=== PATIENT | female | born 1980 | race Caucasian/White ===

== ENCOUNTER → 2020-09-28 10:17 | Outpatient (CLI) | payer OTHER, SELFPAY ==
--- NOTE | ~2020-09-28 | MM_ITS ---
EXAMINATION: MM screening heather BI w jose HISTORY: Screening mammogram TECHNIQUE: Craniocaudal and mediolateral oblique 3-D tomosynthesis images were obtained and synthetic 2-D images were generated. CAD analysis was submitted and interpreted. COMPARISON: None, baseline BREAST PARENCHYMAL COMPOSITION: There are scattered areas of fibroglandular density. FINDINGS: RIGHT BREAST: There is no evidence of suspicious mass, calcification, or architectural distortion to suggest malignancy. LEFT BREAST: There are asymmetries in the middle and posterior third of the outer breast on the crani ocaudal view in the posterior third of the lower breast on the mediolateral oblique view. IMPRESSION: 1. Left breast asymmetries. 2. Additional mammographic views and possible breast ultrasound are recommended to evaluate for malig marcy and establish a baseline given that this is the first mammographic examination. BI-RADS Category 0: Incomplete: Needs additional imaging evaluation. Reviewed, dictated and finalized at location A. TATION OPERATOR HELPER IMPRESSION: 1. Left breast asymmetries. 2. Additional mammographic views and possible breast ultrasound are recommended to evaluate for malignancy and establish a baseline given that this is the fir st mammographic examination. BI-RADS Category 0: Incomplete: Needs additional imaging evaluation.
== END ==
PROVIDERS: Visit Provider Nurse Practitioner
DX: Z12.31 Encounter for screening mammogram for malignant neoplasm of breast (principal); R92.8 Other abnormal and inconclusive findings on diagnostic imaging of breast
CPT/HCPCS: 77063; 77067

== ENCOUNTER → 2020-10-12 08:54 | Outpatient (CLI) | payer OTHER, SELFPAY ==
--- NOTE | ~2020-10-12 | MMUS_ITS ---
EXAMINATION: MM diagnostic mammo unilat LT, US breast LT limited HISTORY: Follow-up left breast asymmetries TECHNIQUE: Additional 3-D tomosynthesis images of the left breast were performed and synthetic 2-D im ages were generated. CAD analysis was submitted and interpreted. High resolution Limited left breast ultrasound was performed. COMPARISON: 09/28/2020 BREAST PARENCHYMAL COMPOSITION: Breast composed of scattered areas of fibroglandular density. FINDINGS: MAMMOGRAPHIC FINDINGS: There are no suspicious masses, calcifications or architectural distortion. No evidence for malignanc y in the left breast. ULTRASOUND: Limited left breast ultrasound: At 2:00, 2 cm from the nipple, there is a 3 mm cyst. At 2:00, 4 cm fr om the nipple, there is an oval hypoechoic mass measuring 6 mm without internal vascularity or dental laboratory worker ior features. IMPRESSION: 1. Probable benign left breast mass at 2:00, 4 cm from the nipple measuring 6 mm. 2. Recommend 6 month follow-up left breast ultrasound. BI-RADS category 3, probably benign findings. Reviewed, dictated and finalized at location A. RVISOR ASPHALT PAVING IMPRESSION: 1. Probable benign left breast mass at 2:00, 4 cm from the nipple measuring 6 m m. 2. Recommend 6 month follow-up left breast ultrasound. BI-RADS category 3, probably benign findings.
== END ==
PROVIDERS: Visit Provider Obstetrics & Gynecology Gynecology
DX: R92.8 Other abnormal and inconclusive findings on diagnostic imaging of breast (principal)
CPT/HCPCS: 76642; 77065

== ENCOUNTER → 2021-04-03 08:20 | Outpatient (CLI) | payer OTHER, SELFPAY ==
--- NOTE | ~2021-04-03 | US_ITS ---
EXAMINATION: US breast LT limited HISTORY: Six-month follow-up for probably benign left breast mass TECHNIQUE: Limited high-resolution ultrasound of left breast is performed. FINDINGS: There is a 4 mm x 3 mm cyst at the 2:00 location 4 cm from the nipple in the left breast wh ich is decreased in size since the comparison examination. No suspicious cystic or solid mass is iden tified. IMPRESSION: Left breast cyst with decrease in size. Routine screening mammography is recommended, due in September 2021. BI-RADS Category 2: Benign finding(s). Reviewed, dictated and finalized at location A. IMPRESSION: Left breast cyst with decrease in size. Routine screening mammography is recomm ended, due in September 2021. BI-RADS Category 2: Benign finding(s).
== END ==
PROVIDERS: PCP Family Medicine; Visit Provider Obstetrics & Gynecology Gynecology
DX: R92.8 Other abnormal and inconclusive findings on diagnostic imaging of breast (principal)
CPT/HCPCS: 76642

== ENCOUNTER → 2022-08-14 14:03 | Outpatient (CLI) | payer OTHER, SELFPAY ==
--- NOTE | ~2022-08-14 | MM_ITS ---
EXAMINATION: MM screening heather BI w jose HISTORY: Screening TECHNIQUE: Craniocaudal and mediolateral oblique 3-D tomosynthesis images were obtained and synthetic 2-D images were generated. CAD analysis was submitted and interpreted. COMPARISON: 09/28/2020 BREAST PARENCHYMAL COMPOSITION: There are scattered areas of fibroglandular density. FINDINGS: There is no evidence of suspicious mass, calcification, or architectural distortion to sugg est malignancy in either breast. There has been no suspicious interval change. IMPRESSION: 1. No mammographic evidence of malignancy. 2. Recommend routine screening mammography in one year. BI-RADS Category 1: Negative Reviewed, dictated and finalized at location A. RITY CONSULTANT
== END ==
PROVIDERS: PCP Family Medicine; Visit Provider Obstetrics & Gynecology Gynecology
DX: Z12.31 Encounter for screening mammogram for malignant neoplasm of breast (principal)
CPT/HCPCS: 77063; 77067

== ENCOUNTER → 2023-09-30 07:21 | Outpatient (CLI) | payer OTHER, SELFPAY ==
--- NOTE | ~2023-09-30 | MM_ITS ---
EXAMINATION: MM screening heather BI w jose HISTORY: Screening mammogram TECHNIQUE: Craniocaudal and mediolateral oblique 3-D tomosynthesis images were obtained and synthetic 2-D images were generated. CAD analysis was submitted and interpreted. COMPARISON: 08/14/2022 bilateral screening mammogram 04/03/2021 Limited left breast ultrasound 10/12/2020 diagnostic left mammogram and limited left breast ultrasound 09/28/2020 bilateral screening mammogram BREAST PARENCHYMAL COMPOSITION: There are scattered areas of fibroglandular density. FINDINGS: There is no evidence of suspicious mass, calcification, or architectural distortion to sugg est malignancy in either breast. There has been no suspicious interval change. IMPRESSION: 1. No mammographic evidence of malignancy. 2. Recommend routine screening mammography in one year. BI-RADS Category 1: Negative Reviewed, dictated and finalized at location B. PPER OPERATOR
== END ==
PROVIDERS: PCP Nurse Practitioner; Visit Provider Nurse Practitioner
DX: Z12.31 Encounter for screening mammogram for malignant neoplasm of breast (principal)
CPT/HCPCS: 77063; 77067

== ENCOUNTER 2024-10-11 07:48 | Outpatient (CLI) | payer OTHER, SELFPAY ==
--- NOTE | ~2024-10-11 | MM_ITS ---
EXAMINATION: MM screening [facility] BI w jose HISTORY: Screening mammogram TECHNIQUE: Craniocaudal and mediolateral oblique 3-D tomosynthesis images were obtained and synthetic 2-D images were generated. CAD analysis was submitted and interpreted. COMPARISON: 09/30/2023, 08/14/2022, 10/12/2020 BREAST PARENCHYMAL COMPOSITION:Not Dense. There are scattered areas of fibroglandular density. FINDINGS: No suspicious mass, calcification, or architectural distortion are identified in either suzie ast to suggest malignancy. There has been no suspicious interval change. IMPRESSION: No mammographic evidence of malignancy. Recommend routine screening mammography in one year. BI-RADS Category 1: Negative Reviewed, dictated and finalized at location . L EDGE PAINTER
== END 2024-10-11 07:49 | disposition home or self-care (01) ==
PROVIDERS: PCP Nurse Practitioner; Visit Provider Nurse Practitioner
DX: Z12.31 Encounter for screening mammogram for malignant neoplasm of breast (principal)
CPT/HCPCS: 77063; 77067

== ENCOUNTER 2025-01-17 10:34 | Outpatient (CLI) | payer OTHER, SELFPAY ==
--- NOTE | ~2025-01-17 | US_ITS ---
EXAM: PELVIC ULTRASOUND (transabdominal) HISTORY: Dysfunctional uterine bleeding COMPARISON: None. FINDINGS: UTERUS: 8.1 x 3.6 x 4.1cm. The uterus is anteverted and anteflexed. The endometrial complex measures 5.4 mm. RIGHT OVARY: The right ovary is unremarkable in echogenicity and size measuring 1.6 x 2.7 x 1.7 cm. Dopplerable flow is identified. LEFT OVARY: The left ovary is unremarkable in echogenicity and size measuring 2.8 x 1.3 x 2.0 cm Dopplerable flow is identified. No free fluid is identified within the pelvis. IMPRESSION: Unremarkable transabdominal sonographic evaluation of the pelvis, as detailed above. Reviewed, dictated and finalized at location A. IMPRESSION: Unremarkable transabdominal sonographic evaluation of the pelvis, as detailed a sam.
== END 2025-01-17 10:35 | disposition home or self-care (01) ==
LOC: MICIMG 10:35
PROVIDERS: PCP Obstetrics & Gynecology Gynecology; Visit Provider Obstetrics & Gynecology Gynecology
DX: N93.8 Other specified abnormal uterine and vaginal bleeding (principal)
CPT/HCPCS: 76856

== ENCOUNTER 2025-01-24 00:33 | Day surgery (SDC) | payer OTHER, SELFPAY ==
[2025-01-17 12:19] VITALS: BMI 24.3
--- OUTSIDE RECORDS SUMMARY | 2025-01-24 00:36 | XMS_ITS | Clinical Summary ---
Author Organization [facility] Address [address] [place] [id number] Care Team Providers Care Cardiac Specialist Name Role Phone Unknown, Notinfile Primary Care Provider Unavail able Allergies Active Allergy Reactions Criticality Noted Date Comments Cephalosporins Hives Medium 04/04/2020 Morphine Rash Medium 09/18/2021 Penicillins Hives Medium 04/04/2020 Medications fluticasone propionate (FLONASE) 50 mcg/actuation nasal spray Administer 2 sprays into each nostril 2 (two) times a day Active levocetirizine (Xyzal) 5 mg tablet Take 1 tablet (5 mg total) by mouth every evening Active azelastine (OPTIVAR) 0.05 % ophthalmic solutionIndication s:Allergic Conjunctivitis 1 drop 2 (two) times a day Active melatonin 10 mg tablet 1 tablet (10 mg total) Active rimegepant (Nurtec ODT) tablet,disintegrat ingIndications:Johnny leonard Prevention Take 1 tablet (75 mg total) by mouth every other day 16 tablet 11 4 Active cholecalciferol 25 mcg (1,000 unit) tablet Take 1 tablet (1,000 Units total) by mouth daily Active DULoxetine DR (CYMBALTA) 60 mg capsule Take 1 capsule (60 mg total) by mouth daily 90 capsule 3 4 Active Hospital, Clinic, or Other Facility Administered Medication Ordered Dose Route Frequency Start Date End Date Status onabotulinumtoxin A (BOTOX) 200 unit injection 200 UnitsIndications:Intr actable chronic migraine without aura and without status migrainosus 200 Units OTHER Once for Clinic-Administere d Medication 03/14/2025 Active Active Problems Problem Noted Date Diagnosed Date Intractable chronic migraine without aura and without status migrainosus 04/30/2023 Idiopathic small fiber peripheral neuropathy Stiffness of hand joint 04/04/2020 Joint pain in fingers of both hands 04/04/2020 JOSE positive 04/04/2020 Dry eyes 04/04/2020 Rash and nonspecific skin eruption 04/04/2020 depression 04/04/2014 Gestational hypertension 03/04/2014 Overview (09/20/2020): 24 hr urine 226mg 03/02/14 AMA (advanced maternal age) multigravida 35+ 08/2014 Overview (09/20/2020): Patient will turn 34 prior to delivery NIPT negative Asthma 01/08/2014 History of section complicating pregnan cy 01/08/2014 Overview (09/20/2020): G1: 34w5d for HELLP, PTL, breech at [place] in 2008, primary LTCS, no complications. Op note under media in [facility] chart History of HELLP syndrome, currently Overview (09/20/2020): Per [facility] record: Atypical presentation, diagnosis not entirely certain. Had mild hypertension, some growth delay, thrombocytopenia and abnormal liver functions but they resolved prior to delivery. Had some features of viral hepatitis, but studies were negative. 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, currently 01/08/2014 Overview (09/20/2020): Baby now doing well History of labor, current 12/28 Overview (09/20/2020): Receiving weekly 17-OHP injections Placenta previa 01/08/2014 Overview (09/20/2020): Complete previa per last BOG ultrasound Rh negative status during 01/08/2014 Overview (09/20/2020): Declines Rhogam, as is A- Did not receive Rhogam in last either Supervision of high-risk 01/08/2014 Overview (09/20/2020): Datin week documented CRL, not c/w LMP O-/I/-/-, HIV NR GCT 151 GTT 78/151/143/77 NIPT negative Encounters Date Type Department Care Team Description 12/29/2024 Orders Only [facility] General Neurology [address] [place] [address] Sherine Marisa Dunbar Intractable chronic migraine without aura and without status migrainosus (Primary Dx) 12/20/2024 1:20 PM CDT Procedure visit [facility] General Neurology [address] [place] [address] Karon Hardy PA Intractable chronic migraine without aura and without status migrainosus (Primary Dx) 11/03/2024 Orders Only [facility] [address] [facility] [address] [place] [address] Sherine Marisa Dunbar Intractable chronic migraine without aura and without status migrainosus (Primary Dx) 11/03/2024 Telephone [facility] General Neurology [address] [facility] [address] [place] [address] Karon Hardy PA [facility] Renewal from Last 3 Months Surgical History Surgery Date Site/Laterality Comments SECTION 09/29/2008 - 09/28/2009 CHOLECYSTECTOMY 09/29/2008 - 09/28/2009 TONSILECTOMY, ADENOIDECTOMY, BILATERAL MYRINGOTOMY AND TUBES 09/29/2011 - 09/28/2012 SECTION 09/29/2013 - 09/28/2014 Medical History Medical History Date Comments Joint stiffness Fever and chills Fatigue Sleeping difficulties Night sweats Numbness and tingling Skin rash History of joint problems HANDS ANKLES KNEES Dry eyes Dry mouth Eyes sensitive to light Red eyes Chest pain Dizziness Fainting Shortness of breath Constipation Hx of migraine headaches Back pain Morning stiffness of joints Depression with anxiety Anemia High blood pressure DURING PREGA NCY Asthma Pneumonia Sinus problem H/O pre-term labor DUE TO ATYPIC AL HELLP Anxiety Migraines Sleep disorder Fibromyalgia Hx of pre-term labor Anemia Low vitamin B12 level Low vitamin D level Family History Medical History Relation Name Comments Anxiety disorder Brother Hyperlipidemia Brother Heart attack Father FATHER Heart disease Father FATHER Heart disease Maternal Grandfather Anxiety disorder Mother Arthritis Mother Cancer Mother Hypertension Mother Heart disease Paternal Grandfather Heart disease Paternal Grandmother Allergic rhinitis Sister Anxiety disorder Sister Allergic rhinitis Son Asperger's syndrome Son Scoliosis Son Relation Name Status Comments Brother Father FATHER (Age 44) Maternal Grandfather Mother Paternal Grandfather Paternal Grandmother Sister Son Social History Tobacco Use Types Packs/Day Years Used Date Smoking Tobacco: Former Smokeless Tobacco: Never Tobacco Cessation:Counseling Given: Not Answered Alcohol Use Standard Drinks/Week Comments Yes 0 (1 standard drink = 0.6 oz pur e alcohol) Comments No Sex and Gender Information Value Date Recorded Sex Assigned at Not on file Legal Sex Female 8:12 PM PROTECTION MGR Gender Identity Not on file Sexual Orientation Not on file Occupation Industry Job Start Date Job End Date works from home Not on file Not on file Not on file Obstetrics History Last Filed Vital Signs Vital Sign Reading Time Taken Comments Blood Pressure 90/70 12/20/2024 1:25 PM CDT Pulse 120 12/20/2024 1:25 PM CDT Temperature 36.2 C (97.2 F) 12/20/2024 1:25 PM CDT Respiratory Rate - - Oxygen Saturation 97% 12/20/2024 1:25 PM CDT Inhaled Oxygen Concentration - - Weight 77.1 kg (170 lb) 12/20/2024 1:25 PM CDT Height 172.7 cm (5' 8 ) 12/20/2024 1:25 PM CDT Body Mass Index 25.85 12/20/2024 1:25 PM CDT Plan of Treatment Health Maintenance Due Date Last Done Comments Breast Cancer Screening-Mammogram 1979 Cervical Cancer Screening 1979 Colon Cancer Screening-Colonoscopy 1979 Depression Screening 1979 Hepatitis C Screening 1979 Hepatitis B Screening 1997 Regular Well Visit/Exam 18-64 1997 Pneumococcal vaccine <65 (2 of 2 - PCV) 03/12/2015 03/12/2014 DTaP/Tdap/Td Vaccine (2 - Td or Tdap) 03/02/2024 03/02/2014 Influenza Vaccine (Season Ended) 2025 09/30/2023, 07/30/2020 HPV Vaccines Aged Out No longer eligi ble based on patient's age to complete this topic Insurance [employer] Care Teams Cardiac Specialist Relationship Specialty Start Date End Date Unknown, Notinfile PCP - General 01/06/25
--- OUTSIDE RECORDS SUMMARY | 2025-01-24 00:36 | XMS_ITS | CONTINUITY OF CARE DOCUMENT ---
Author Name kelby lama Address Unknown Organization [facility] Address [address] [place] [address] Phone [phone] Care Team Providers Care Manager File Name Role Phone Meliza Ruiz MD Unavailable JAZZY BROCK MD Unavailable JAZZY BROCK MD Unavailable PROBLEMS Condition Status Date Provider Notes LEG OR ARM PAIN active Stacey Anglin ANXIETY DISORDER GENERALIZED active Stacey Anglin ENCOUNTERS Date Type Provider Location Encounter Diagnosis - In-person encounter Office Visit Maged Bullard MD [facility] VITAL SIGNS Date Observation Value Provider pulse rate 84 /min Anuj Stuart RN oxygen saturation, oximetry 100 % Anuj Stuart RN respiratory rate E&M 18 /min Anuj garcia RN weight E&M 152 [lb_av] Anuj Stuart RN HISTORY OF MEDICATION USE Medication Status Instructions Dates Provider Indications Com ments VITAMINS TABLET active daily Anuj Stuart RN SOCIAL HISTORY Date Observation Value Provider social history E&M Marital Statu s: L olga with family/friends E thnicity: Anuj Stuart RN social history reviewed E&M reviewed Anuj Stuart RN physical exercise, f requency, days per week yes [employer] caffeine use, averag e drinks per day no [employer] alcohol use, average drinks per day none [employer] smoking status Non-smoker [employer] MENTAL STATUS Date Observation Value Provider assessment of judgme nt and insight E&M Alert and oriented to time, place and person. Mood and affect are normal. Anuj Stuart RN INSURANCE PROVIDERS Payer name Policy type / Coverage type Haresh red republican ID SH[employer] insurance company [id number] TREATMENT PLAN Date Name Performer chest pain 32 weeks :Echocardiogram: Normal LV function with an EF of 65%. Myxomatous MV. Trace MR. Trace TR with a PA pressure 29mmmHg. [facility] (04/03/2007) Orders: E KG ([id number]) C omplete Echo ([id number]) s he has had this pain for 5-6 days. also the pain was there and then went away. she now has pain again. t he ekg is fine and she looks ok w ill check an echo and venous dopplers. w ill see her after the tests are done. Maged Bullard MD Date Name Venous Doppler Emil FOSTER Complete Echo HISTORY OF PROCEDURES Procedure Date Procedure Name Provider Procedure Notes S tatus EKG Maged Bullard MD completed
--- OUTSIDE RECORDS SUMMARY | 2025-01-24 00:36 | XMS_ITS | Data Portability ---
Author Organization [facility], Main Office Address [address] [place] [address] Assessment No assessment recorded. Plan of Treatment Reminders Order Date Submit Date Provider Last Modified By Organization Details Last Modified Time Details Appointments None recorded. Lab None recorded. Referral None recorded. Procedures None recorded. Surgeries None recorded. Imaging None recorded. Medication Orders prednisone 20 mg tablet 2022 023 [facility]/Pharmacy #[id number], [address] [facility], [place], [address], 08:32:38 Patient TargetsNo targets recorded. Patient InstructionsNo instructions recorded. Reason for Referral None Reported. Results Created Date Observation Date Name Description Value Unit Range Abnormal Flag Note LastModifiedBy Organization Detail LastModifiedTime 04/04/2004/03/2021 US, sanchez t No observ ation record ed. [id number] [facility] [address], [place], [address], 11/27/2022 22:51:09 08/14/20 22 08/14/2022 MAMMO , scree jami, digit al, bilat eral No observ ation record ed. [id number] [facility] [address], [place], [address], 11/27/2022 22:51:09 Result Notes None recorded. 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 Procedures Surgical History Date Name Laterality Status Provider Name and Address Organization Details Recorded Time section completed Not Available [facility] 11/27/2022 22:47:46 Tonsillectomy completed Not Available [facility] 11/27/2022 22:47:46 cholecystectomy completed Not Available [facility] 11/27/2022 22:47:46 Imaging Results Imaging Date Name Status LastModified by Organiz ation Details LastModified Time 04/03/2021 US, breast completed [id number] [facility] [address], [place], [address], 11/27/2022 22:51:09 08/14/2022 MAMMO, screening, digital, bilateral completed [id number] [facility] [address], [place], [address], 11/27/2022 22:51:09 Procedure Notes None recorded. Medical Equipment None Reported. Allergies Allergen ID Allergen Name Allergen Category Reaction Reaction Severity Criticality Documentation Date Start Date Code Code System Note Provider Name and Address Organization Details Recorded Time 57017 Product containin g penicilli n (product) medicatio n Not available Not available Not available 11/27/2022 00732 8001 SNOMED hives Not Available [facility] 3 22:50:49 15277 morphine medicatio n Not available Not available Not available 11/27/2022 7052 RxNorm visua l distu rbanc e Not Available [facility] 3 22:50:50 23346 Medicinal product containin g cephalosp xenia and acting as antibacte rial agent (product) medicatio n Not available Not available Not available 11/27/2022 69653 9009 SNOMED hives Not Available [facility] 3 22:50:50 Medications Name Sig Start Date Stop Date Status Note LastModified by Organization Details LastModified Time azelastine 0.05 % eye drops 03/04 completed Not Available Not Available Not Available prednisone 10 mg tablet 02/12 completed Not Available Not Available Not Available doxycycline hyclate 100 mg capsule 1 po bid 03/04 completed Not Available Not Available Not Available azithromyci n 250 mg tablet 03/04 completed Not Available Not Available Not Available fluconazole 150 mg tablet 03/04 completed Not Available Not Available Not Available prednisone 20 mg tablet TAKE 2 TABLETS BY MOUTH EVERY DAY FOR 5 DAYS active Not Available Not Available No t Available doxycycline hyclate 50 mg capsule 02/12 completed Not Available Not Available Not Available sertraline 100 mg tablet 1 po qday 03/12 completed Not Available Not Available Not Available sumatriptan 50 mg tablet prn active Not Available Not Available Not Available topiramate 25 mg tablet PLEASE SEE ATTACHED FOR DETAILED DIRECTION S active Not Available Not Available No t Available sulfamethox azole 800 mg-trimetho prim 160 mg tablet 02/12 completed Not Available Not Available Not Available meclizine 25 mg tablet active Not Available Not Available Not Available doxycycline monohydrate 100 mg capsule 03/04 completed Not Available Not Available Not Available triamcinolo ne acetonide 0.1 % topical ointment active Not Available Not Available Not Available metronidazo le 0.75 % topical cream active Not Available Not Available Not Available ergocalcife rol (vitamin D2) 1,250 mcg (50,000 unit) capsule 1 po qweek active Not Available Not Available No t Available polyethylen e glycol 3350 17 gram/dose oral powder 1 capful in liquid daily prn active Not Available Not Available No t Available levofloxaci n 750 mg tablet 02/12 completed Not Available Not Available Not Available albuterol sulfate HFA 90 mcg/actuati on aerosol inhaler 02/12 completed Not Available Not Available Not Available fluticasone propionate 50 mcg/actuati on nasal spray,suspe nsion [place] 1 spray every day by intranasa l route. 2020 active Not Available Not Available Not Avai lable clindamycin phosphate 1 % topical solution active Not Available Not Available Not Available duloxetine 60 mg capsule,del ayed release TAKE 1 CAPSULE TWICE A DAY 2022 active Not Available Not Available Not Avai lable melatonin 6 mg qhs 2020 active Not Available Not Available Not Avai lable B12 once per day 2020 active Not Available Not Available Not Avai lable Vitals Date Recorded Body mass index (BMI) Body height Oxygen saturation Oxygen saturation in Arterial blood by Pulse oximetry Heart rate Body temperature Body weight Systolic blood pressure Diastolic blood pressure Provider Name and Address Organization Details Last Updated DateTime 1 25.4 kg/m2 172.72 cm 97 % 97 % 88 /min 98.1 [degF] 49979.9 3 g 110 mm[Hg] 68 mm[Hg] Not Available [facility] 3 22:47:51 Date Recorded Body mass index (BMI) Body height Oxygen saturation Oxygen saturation in Arterial blood by Pulse oximetry Heart rate Body temperature Body weight Systolic blood pressure Diastolic blood pressure Provider Name and Address Organization Details Last Updated DateTime 1 25.4 kg/m2 172.72 cm 96 % 96 % 84 /min 98.7 [degF] 12322.9 3 g 126 mm[Hg] 78 mm[Hg] Not Available [facility] 3 22:47:51 Date Recorded Body mass index (BMI) Body height Oxygen saturation Oxygen saturation in Arterial blood by Pulse oximetry Heart rate Body temperature Body weight Systolic blood pressure Diastolic blood pressure Provider Name and Address Organization Details Last Updated DateTime 1 25.4 kg/m2 172.72 cm 98 % 98 % 81 /min 98.1 [degF] 52614.9 3 g 120 mm[Hg] 80 mm[Hg] Not Available [facility] 3 22:47:51 Date Recorded Body weight Body temperature Heart rate Oxygen saturation Oxygen saturation in Arterial blood by Pulse oximetry Systolic blood pressure Diastolic blood pressure Provider Name and Address Organization Details Last Updated DateTime 3 28045.1 5 g 97.3 [degF] 96 /min 98 % 98 % 124 mm[Hg] 76 mm[Hg] Allie Hopkins RN [place] [facility] 3 08:13:31 Social History Question Answer Notes LastModified by Dear[employer] Details LastModified Time Tobacco Smoking Status Never Smoker Not Available [facility] 11/27/2022 22:47:13 Do You Have An Advance Directive? No [id number] Information not available 11/27/2022 What Is Your Level Of Alcohol Consumption? Moderate [id number] Information not available 11/27/2022 What Is Your Level Of Caffeine Consumption? Moderate [id number] Information not available 11/27/2022 How Much Tobacco Do You Chew? None [id number] Information not available 11/27/2022 Which Illicit Or Recreational Drugs Have You Used? No [id number] Information not available 11/27/2022 Do You Or Have You Ever Used E-cigarettes Or Vape? 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 02/12/2021 [id number] Information not available 11/27/2022 Do You Or Have You Ever Used Smokeless Tobacco? Never Used Smokeless Tobacco [id number] Information not available 11/27/2022 Do You Use Sunscreen Routinely? Yes [id number] Information not available 11/27/2022 Sex: Unknown Functional Status Question Answer Note LastModified by [employer] Details LastModified Time What is your exercise level? Occasional [id number] Information not available 11/27/2022 Mental Status None recorded. Family History Relationship Description Onset Age of this Age Resolved Age Notes LastModified by Organization Details LastModified Time Mother Essential hypertension [id number] Not available 11/27/2022 22:47:47 Mother Malignant neoplasm of skin Not melano ma [id number] Not available 11/27/2022 22:47:47 Father Essential hypertension [id number] Not available 11/27/2022 22:47:47 Father Heart disease [id number] Not available 11/27/2022 22:47:47 Brother Essential hypertension [id number] Not available 11/27/2022 22:47:47 Medical History Condition Response BLINDNESS N RHEUMATIC FEVER N BLADDER PROBLEMS N KIDNEY STONES N MRSA N OTHER # 1 N POLIO N LUNG DISEASE/DISORDER N RADIATION / CHEMOTHERAPY N COPD N Other # 2 N BLOOD DISEASES N SURGERY N EAR OR HEARING PROBLEMS N MUMPS N BOWEL PROBLEMS N DEPRESSION (INCLUDING POST ) N FEMALE PROBLEMS / INFECTIONS N STROKE/TIA N THYROID DISEASE N ULCERS N BENIGN PROSTATIC HYPERPLASIA N MEASLES N CERVICALGIA N TB SKIN TEST N MYOCARDIAL INFARCTION N PARAPELGIA N OBESITY N GERD/NAUSEA N ANEURYSM N URINARY/BLADDER/KIDNEY PROBLEMS N CORONARY ARTERY DISEASE (CAD) N MENIERE'S DISEASE N ADDICTION CONCERNS N ENDOMETRIOSIS N USE OF BLOOD THINNERS N SKIN PROBLEMS N EMPHYSEMA N GASTROINTESTINAL DISORDER N MUSCLE,JOINT OR BONE PROBLEMS N GASTROINTESTINAL BLEEDING N BLOOD CLOTS N ASTHMA Y CATARACTS N ERECTILE DYSFUNCTION N GI PROBLEMS N CHF N Low Testosterone N NEUROPATHY N INFERTILITY N AIDS/HIV N FRACTURES N CHEMOTHERAPY / RADIATION N VISION/EYE PROBLEMS N LIVER DISEASE N MALE HYPOGONADISM N HYPERTENSION N TOURETTE'S N ANXIETY DISORDER Y BLOOD TRANSFUSION N ANEMIA/BLOOD DISORDER N CHRONIC EAR INFECTIONS N BRONCHITIS N TUBERCULOSIS N GLAUCOMA N FOOT PROBLEM N DIVERTICULITIS N SLEEP APNEA N CHICKENPOX N ALLERGIES/HAYFEVER Y INFECTIOUS DISEASE N PROSTATE N HEART ARRHYTHMIA N INSOMNIA N HIGH CHOLESTEROL / HYPERLIPIDEMIA N EYE PROBLEMS N HYPERTHYROIDISM N EATING DISORDER N EDEMA N CHRONIC PAIN SYNDROME N CAROTID BLOCKAGE N CONSTIPATION N BACK / NECK PROBLEMS N HAVE YOU BEEN HOSPITALIZED OR SEEN IN [place] IN THE PAST YEAR ? N ATHEROSCLEROSIS N BREAST PROBLEMS N DIALYSIS N ECZEMA N FIBROMYALGIA N OSTEOPOROSIS N ARTHRITIS N NO SIGNIFICANT PAST MEDICAL HISTORY N APPENDICITIS N DIABETES, TYPE N BAD TEETH N HEARTBURN / REFLUX N ADD/ADHD N AUTISM SPECTRUM DISORDER (ASD) N HEPATITIS / LIVER DISEASE N PULMONARY DISEASE N GOUT N SLEEP DISORDER Y ALZHEIMER'S DISEASE N PAIN N DEMENTIA N HERPES N SEIZURES/EPILEPSY N HEADACHES/MIGRAINES Y VASCULAR DISEASE N PACEMAKER N DIZZINESS N HEART DISEASE/HEART PROBLEMS N KIDNEY DISEASE N SCARLET FEVER N MULTIPLE SCLEROSIS N DEVELOPMENTAL OR BEHAVIORAL DISORDERS N MENTAL DISORDER/ILLNESS N CANCER: SPECIFY N CARDIAC ARRHYTHMIA N PNEUMONIA N ATRIAL FIBRILLATION N Gall Stones N PULMONARY EMBOLISM N AUTOIMMUNE DISEASE N Gynecological HistoryNo gynecological history recorded. Obstetrics History GPAL:G 0 P 0 0 0 0 Immunizations Vaccine Type Date Status Note Provider Nam e and Address Organization Details Recorded Time SARS-COV-2 (COVID-19) vaccine, UNSPECIFIED 1 completed Not Available [facility] 11/27/2022 22:50:46 SARS-COV-2 (COVID-19) vaccine, UNSPECIFIED 1 completed Not Available [facility] 11/27/2022 22:50:46 Past Encounters Encounter ID Performer Location Encounter Start Date Encounter Closed Date Diagnosis/Indication Diagnosis SNOMED-CT Code Diagnosis ICD10 Code Diagnosis Note [id number] [facility] [address] [place] [address] 02/12/2021 00:00:00 02/12/2021 09:43:15 [id number] [facility] [address] [place] [address] 03/12/2021 00:00:00 03/12/2021 09:21:57 [id number] [facility] [address] [facility] [address] 04/09/2021 00:00:00 04/09/2021 08:19:28 [id number] Dodie Chung MD [facility] [address] [facility] [place] [address] 03/04/2023 08:08:34 03/04/2023 08:48:21 Dysfunction of eustachian tube 19013918 H69.93 continue flonase, xyzal and neti potok to take benadryl 50 mg po qhs-may cause dizziness, drowsiness prednisone 40 mg daily with food x 5 days, avoid other nsaidscall on Friday with update, ENT if no improvemen t Health Concerns Section Related Observation LastModified by Organization Detai ls LastModified Time None Recorded Concern Status LastModified by Organization Details LastModified Time None Recorded Advance Directives Directive N: Payers Encounter Date Sequence Insurance Name Policy Number Policy Amin Covered Member ID Amin Member ID Guarantor Name 03/04/2023 1 [facility] [id number] Sarah Gipsongrayson [id number] Sarah Parsons Notes Date Note Type Note Provider Name and Address Organization Details Recorded Time 03/04/2023 text/html bilateral ear pain, right greater than left. Had cold about a month ago, got abx with telehealth. Some improvement but no resolution. She had popping and muffled sensation, rhinorrhea, PND. About 2 weeks ago, ear pain worsened and radiates down into the jaw and throat. No fever, +facial congestion, PND. She takes xyzal in AM, neti pot, flonase 2 sprays BID, sudafed. Dodie Chung MD [address] [place] [address] [address], [place], [address], [place] [facility] 03/04/2023 08:34:40 OBGyn Episode No OBEpisode recorded.
--- OUTSIDE RECORDS SUMMARY | 2025-01-24 00:36 | XMS_ITS | Referral Summary ---
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 Name Role Phone Unknown, Notinfile Primary Care Provider Unavail able Encounters Date Type Department Care Team Description 12/29/2024 Orders Only [facility] [address] [facility] [address] [place] [address] Marisa Basurto Intractable chronic migraine without aura and without status migrainosus (Primary Dx) 12/20/2024 1:20 PM CDT Procedure visit [facility] [address] [facility] [address] [place] [address] Karon Hardy PA Intractable chronic migraine without aura and without status migrainosus (Primary Dx) 11/03/2024 Orders Only [facility] Neurology [address] [address] [place] [address] Robyn Basurtoa Bettina Intractable chronic migraine without aura and without status migrainosus (Primary Dx) 11/03/2024 Telephone [facility] [address] [facility] [address] [place] [address] Karon Hardy PA Nurtec PA Renewal from Last 3 Months Allergies Active Allergy Reactions Criticality Noted Date [...] G1: 34w5d for HELLP, PTL, breech at [facility] in 2009, primary LTCS, no complications. Op note under media in BOG chart History of HELLP syndrome, currently Overview (09/20/2020): Per [facility] record: Atypical presentation, diagnosis not entirely certain. [...] 01/08/2014 Overview (09/20/2020): Complete previa per last [facility] ultrasound Rh negative status during 01/08/2014 Overview (09/20/2020): Declines Rhogam, as is A- Did not receive Rhogam in last either Supervision of high-risk 01/08/2014 Overview (09/20/2020): Datin week documented CRL, not c/w LMP O-/I/-/-, HIV NR GCT 151 GTT 78/151/143/77 NIPT negative Social History Tobacco Use Types Packs/Day Years Used Date Smoking Tobacco: Former Smokeless Tobacco: Never Tobacco Cessation:Counseling Given: Not Answered Alcohol Use Standard Drinks/Week Comments Yes 0 (1 standard drink = 0.6 oz pur e alcohol) Comments No Sex and Gender Information Value Date Recorded Sex Assigned at Not on file 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
[2025-01-24 08:55] VITALS: BP 127/66; PULSE 114; RESP 16; TEMP 36.3; O2SAT 99; BMI 24.8
[2025-01-24] MEDS: LACTATED RINGERS 1,000 ML 150 ML IV CONT (09:04)
--- NOTE | 2025-01-24 09:10 | P.PNAN_ITS ---
Anes - Initial Pre Proc Eval Procedure: Operation Date: 01/24/25 10:00 Proposed Procedures p Screening Colonoscopy - Russ Padron MD Date/Time: 01/24/25 09:10 Surgeon: Russ Padron MD Pre Op Diagnosis: Screening Patient Data Age: 44 Gender: F Height: 1.73 m Weight: 74.2 kg Last Vital Signs Temp 97.3 F L 01/24/25 08:55 Pulse 114 H 01/24/25 08:55 Resp 16 01/24/25 08:55 BP 127/66 01/24/25 08:55 Pulse Ox 99 01/24/25 08:55 O2 Del Method Room Air 01/24/25 08:55 Allergies Allergy/AdvReac Type Severity Reaction Status Date / Time morphine Allergy Intermediate Hives Verified 01/24/25 08:54 Penicillins Allergy Mild Hives Verified 01/24/25 08:54 Home Medications ?Medication ?Instructions ?Recorded ?Confirmed ?Type cetirizine 10 mg tablet (Zyrtec) 10 mg PO DAILY 06/28/20 01/24/25 History fluticasone propionate 50 1 spray intranasal BID 09/25/20 01/24/25 History mcg/actuation nasal spray,suspension (Flonase Allergy Relief) ketotifen fumarate 0.025 % (0.035 1 drp ophthalmic (eye) BID 09/25/20 01/24/25 History %) eye drops (Zaditor) duloxetine 30 mg capsule,delayed 30 mg PO DAILY 01/17/25 01/24/25 History release (Cymbalta) Patient hx anesthesia problems: none Family hx anesthesia problems: none Results Review: All pre-operative results and documents have been reviewed as part of the pre- operative evaluation. COUNT INCLUDES [facility] Past Medical History Medical History Fibromyalgia Rosacea Seasonal allergies Healthy adult Social History Social History Smoking status: Never smoker Second hand tobacco smoke exposure: No Alcohol intake: never Anes - Eval Final PreProcedure Day of Procedure 01/24/25 09:10 Patient weight: normal Lungs: normal air movement Airway: Mallampati scale class II Neurological: alert and oriented Last oral intake: >/= 8 hours ASA classification: I Emergent: no Anesthetic plan: proceed Anesthesia type and monitoring: general GIVS and standard monitoring Results Review: All pre-operative results and documents have been reviewed as part of the pre- operative evaluation. Overall good health, noted hx of fibromyalgia. Informed Consent: The patient's anesthetic plan and its attendant risks and benefits were discussed with the patient/family/POA. Questions were solicited and answers provided to the satisfaction of the patient/family/POA.
--- NOTE | 2025-01-24 09:28 | PM.HPGS ---
History of Present Illness History of Present Illness Consent: Risks, benefits, and alternatives have been discussed and questions answered. Patient agrees to proceed with procedure. Chief complaint: Screening Narrative: Sarah Parsons is a 44 year old female here for first screening colonoscopy Review of Systems Review of Systems: All systems reviewed & are unremarkable except as noted in HPI and below PMFSH Past Medical History Medical History (Updated 01/24/25 @ 09:29 by Russ Padron MD) Colon cancer screening Fibromyalgia Rosacea Seasonal allergies Healthy adult Social History Social History Smoking status: Never smoker Second hand tobacco smoke exposure: No Alcohol intake: never Meds Home Medications and Allergies Home Medications ?Medication ?Instructions ?Recorded ?Confirmed ?Type cetirizine 10 mg tablet (Zyrtec) 10 mg PO DAILY 06/28/20 01/24/25 History fluticasone propionate 50 1 spray intranasal BID 09/25/20 01/24/25 History mcg/actuation nasal spray,suspension (Flonase Allergy Relief) ketotifen fumarate 0.025 % (0.035 1 drp ophthalmic (eye) BID 09/25/20 01/24/25 History %) eye drops (Zaditor) duloxetine 30 mg capsule,delayed 30 mg PO DAILY 01/17/25 01/24/25 History release (Cymbalta) Allergies Allergy/AdvReac Type Severity Reaction Status Date / Time morphine Allergy Intermediate Hives Verified 01/24/25 08:54 Penicillins Allergy Mild Hives Verified 01/24/25 08:54 Vital Signs Vital Signs - 24 hr 01/24/25 08:55 Temperature 97.3 F L Pulse Rate 114 H Respiratory Rate 16 Blood Pressure 127/66 Pulse Oximetry 99 Oxygen Delivery Room Air Exam Const: General: comfortable and no acute distress HENMT: Face/Nose/Sinus: Normal nares present Eyes: General: appearance normal, both eyes and all related structures Neck: Neck: no JVD Resp: Auscultation: clear to auscultation bilaterally Cardio: Rate: regular rate Rhythm: regular rhythm GI: Inspection: non-distended GI Palp: Yes Soft to palpation Skin: General skin exam: normal color Neuro: General: gait normal Speech: normal speech Extrem: General: normal to inspection Psych: Mental Status: mental status grossly normal Assessment and Plan Assessment and plan (1) Colon cancer screening: Code(s): Z12.11 - Encounter for screening for malignant neoplasm of colon Status: Acute Assessment and Plan: colonoscopy
[2025-01-24 09:42] VITALS: BP 102/71; PULSE 90; RESP 12; O2SAT 100
[2025-01-24 09:52] VITALS: BP 114/76; PULSE 88; RESP 15; O2SAT 100
[2025-01-24 10:02] VITALS: BP 121/77; PULSE 77; RESP 20; O2SAT 100
== END 2025-01-24 10:07 | disposition home or self-care (01) ==
PROVIDERS: Referring Provider Nurse Practitioner; Visit Provider Internal Medicine Gastroenterology
PROC: 0DJD8ZZ Inspection of Lower Intestinal Tract, Via Natural or Artificial Opening Endoscopic (ICD-10-PCS; CPT 45378; principal; 2025-01-24 10:00)
DX: Z12.11 Encounter for screening for malignant neoplasm of colon (principal)
CPT/HCPCS: 45378; J2003; J2704; J7120

== ENCOUNTER 2025-02-07 00:14 | Day surgery (SDC) | payer OTHER, SELFPAY ==
[2025-01-26 09:07] VITALS: BMI 25.0
--- NOTE | 2025-01-26 09:09 | PC.NURSE ---
Report to the Outpatient Waiting Room, entrance under the green pavilion located off [facility], at time _11:00am on date _7-07-8113 . Planned Procedure Time: _1:00pm .? Time changes happen often and if your time is changed the preop area will call you the afternoon before. - You and your visitor will be asked to self-screen and do not enter if you have any COVID symptoms. Please call surgeon if you need to reschedule. - A mask is optional within the hospital at this time. Patients may have clear liquids (water, carbonated beverages, clear teas, apple juice) until 3 hours prior to surgery with a maximum of 20 ounces. - No food from midnight until time of surgery and no smoking, or chewing tobacco (or any form of nicotine). No chewing gum, candy or mints. Take only the following medications with a SIP of water on the morning of surgery: ___You may take your Zaditor and cymbalta DO NOT STOP ANY OF YOUR OTHER PRESCRIPTION MEDICATIONS PRIOR TO SURGERY EXCEPT THE FOLLOWING Hold all vitamins and supplements for 3 days per anesthesiologist. Please no make-up, nail setswana, hairspray, perfume, deodorant, or body powder the day of surgery.? No jewelry (including any body piercings) or valuables the day of surgery, leave them at home.? Please take a shower or bath the night before, or the morning of, surgery with an antibacterial soap.? Wear comfortable, loose fitting clothing.? - Jewelry must be removed prior to entering the operating room.? Rings and piercings that are not removed may be cut off. - The hospital will not accept responsibility for valuables.? - Please leave all valuables, including medications, at home the day of surgery. If you are going home after surgery, a licensed vacuum truck driver must drive you home.? - NO public transportation without another adult if you receive anesthesia. - We recommend that an adult stay with you for 24 hours following discharge. - We also recommend that you do not drive, make important decision, drink alcoholic beverages, or take any drugs that were not prescribed by your health care provider for at least 24 hours after your discharge time. Follow any additional instructions given to you from your surgeon. Telephone instructions given to and asked if any additional questions and then verbalized understanding. Patient advised to call surgeon office or pre surgery nurse liaison [phone] if any additional questions.
--- OUTSIDE RECORDS SUMMARY | 2025-02-07 00:17 | XMS_ITS | Referral Summary ---
Author Organization [facility] Address [address] [place] [address] Care Team Providers Care Customs Port Director Name Role Phone Unknown, Notinfile Primary Care Provider Unavail able Encounters Date Type Department Care Team Description 12/29/2024 Orders Only [facility] General Neurology [address] [facility] [address] 6th [address] [place] [address] Marisa Basurto Intractable chronic migraine without aura and without status migrainosus (Primary Dx) 12/20/2024 1:20 PM CDT Procedure visit [facility] General Neurology [address] [facility] [address] [facility] [address] 6[address] [place] [address] Karon Hardy PA Intractable chronic migraine without aura and without status migrainosus (Primary Dx) from Last 3 Months Allergies Active Allergy [...] G1: 34w5d for HELLP, PTL, breech at [place] in 2009, primary LTCS, no complications. Op [...] NR GCT 151 GTT 78/151/143/77 NIPT negative Immunizations Immunization Administration Dates Next Due Influenza, Quadrivalent, Rec ombinant, Egg Free, Preservative Free, Intramuscular 07/30/2020 Influenza, Unspecified 09/30/2023 Pneumococcal Polysaccharide PPV23 03/12/2014 Sars-CoV-2, Unspecified 12/15/2020,11/24/2020 Tdap 03/02/2014 Social History Tobacco Use Types Packs/Day Years Used Date Smoking Tobacco: Former Smokeless Tobacco: Never Tobacco Cessation:Counseling Given: Not Answered Alcohol Use Standard Drinks/Week Comments Yes 0 (1 standard drink = 0.6 oz pur e alcohol) Comments No Sex and Gender Information Value Date Recorded Sex Assigned at Not on file 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
--- OUTSIDE RECORDS SUMMARY | 2025-02-07 00:17 | XMS_ITS | CONTINUITY OF CARE DOCUMENT ---
Author Name kelby lama Address Unknown Organization [facility] Address [address] [place] [address] Phone [phone] Care Team Providers Care Buggy Man Name Role Phone Meliza Ruiz MD Unavailable JAZZY BROCK MD Unavailable JAZZY BROCK MD Unavailable PROBLEMS Condition Status Date Provider Notes LEG OR ARM PAIN active Stacey Anglin ANXIETY DISORDER GENERALIZED active Stacey Anglin ENCOUNTERS Date Type Provider Location Encounter Diagnosis - In-person encounter Office Visit Maged Bullard MD [place] [facility] VITAL SIGNS Date Observation Value Provider [...] Policy type / Coverage type Haresh red green party ID SHIRA [employer] insurance company [id number] TREATMENT PLAN Date Name Performer chest pain 32 weeks :Echocardiogram: Normal LV function with an EF of 65%. Myxomatous MV. Trace MR. Trace TR with a PA pressure 29mmmHg. [facility] (04/03/2007) Orders: E KG ([id number]) C omplete Echo ([id number]) s he has had this pain for [...]
--- OUTSIDE RECORDS SUMMARY | 2025-02-07 00:17 | XMS_ITS | Clinical Summary ---
Author Organization [facility] Address [address] [place] [address] Care Team Providers Care Teacher Of The Hearing Impaired Name Role Phone Unknown, Notinfile Primary Care [...] G1: 34w5d for HELLP, PTL, breech at [place] in 2008, primary LTCS, no complications. Op note under media in BOG chart History of HELLP syndrome, currently Overview (09/20/2020): [place] [facility] [place]: Atypical presentation, diagnosis not entirely certain. [...] Department Care Team Description 12/29/2024 Orders Only [facility] General Neurology [address] [place] [id number] Marisa Basurto Intractable chronic migraine without aura and without status migrainosus (Primary Dx) 12/20/2024 1:20 PM CDT Procedure visit [facility] General Neurology [address] [facility] 6th Floor [address] [place] [address] Karon Hardy PA Intractable chronic migraine without aura and without status migrainosus (Primary Dx) from Last 3 Months Immunizations Immunization Administration Dates Next Due Influenza, Quadrivalent, Rec ombinant, Egg Free, Preservative Free, Intramuscular 07/30/2020 Influenza, Unspecified 09/30/2023 Pneumococcal Polysaccharide PPV23 03/12/2014 Sars-CoV-2, Unspecified 12/15/2020,11/24/2020 Tdap 03/02/2014 Surgical History Surgery Date Site/Laterality Comments SECTION [...] on file 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
--- OUTSIDE RECORDS SUMMARY | 2025-02-07 00:18 | XMS_ITS | Data Portability ---
Author Organization [facility], Main Office Address [address] [place] [address] Assessment No assessment recorded. Plan of Treatment Reminders Order Date Submit Date Provider Last Modified By Organization Details Last Modified Time Details Appointments None recorded. Lab None recorded. Referral None recorded. Procedures None recorded. Surgeries None recorded. Imaging None recorded. Medication Orders prednisone 20 mg tablet 2022 023 [id number], [address] [facility] [address], [place], [address], 08:32:38 Patient TargetsNo targets recorded. Patient InstructionsNo instructions recorded. Reason for Referral None Reported. Results Created Date Observation Date Name Description Value Unit Range Abnormal Flag Note LastModifiedBy Organization Detail LastModifiedTime 04/04/2004/03/2021 US, sanchez t No observ ation record ed. [id number] [facility] [address], [place], [address], 11/27/2022 22:51:09 08/14/20 22 08/14/2022 MAMMO , scree jami, digit al, bilat eral No observ ation record ed. [id number] [facility] [address], [place], [address], 11/27/2022 22:51:09 Result Notes None recorded. Problems Name Problem SNOMED Code Status Onset Date Resolution Date Notes Provider Name and Address Organization Details Recorded Time Raynaud's disease 795616137 Active 2020 Not Available [facility] 3 22:48:55 Asthma 819129621 Active 2020 Not Available [facility] 3 22:48:56 Fibromyalgia 750608068 Active 2020 Not Available [facility] 3 22:48:56 Seasonal allergic rhinitis 287864503 Active 2020 Not Available [facility] 3 22:48:56 Migraine 10644002 Active 2020 Not Available [facility] 3 22:48:56 REM sleep behavior disorder 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 Procedures Surgical History Date Name Laterality Status Provider Name and Address Organization Details Recorded Time section completed Not Available [facility] 11/27/2022 22:47:46 Tonsillectomy completed Not Available [facility] 11/27/2022 22:47:46 cholecystectomy completed Not Available [facility] 11/27/2022 22:47:46 Imaging Results Imaging Date Name Status LastModified by Organiz ation Details LastModified Time 04/03/2021 US, breast completed [id number] [facility] [address], [place], [address], 11/27/2022 22:51:09 08/14/2022 MAMMO, screening, digital, bilateral completed [id number] [facility] [address], [place], [address], 11/27/2022 22:51:09 Procedure Notes None recorded. Medical Equipment None Reported. Allergies Allergen ID Allergen Name Allergen Category Reaction Reaction Severity Criticality Documentation Date Start Date Code Code System Note Provider Name and Address Organization Details Recorded Time 11142 Product containin g penicilli n (product) medicatio n Not available Not available Not available 11/27/2022 45734 8001 SNOMED hives Not Available [facility] 3 22:50:49 79451 morphine medicatio n Not available Not available Not available 11/27/2022 7052 RxNorm visua l distu rbanc e Not Available [facility] 3 22:50:50 90468 Medicinal product containin g cephalosp xenia and acting as antibacte rial agent (product) medicatio n Not available Not available Not available 11/27/2022 27863 9009 SNOMED hives Not Available [facility] 3 22:50:50 Medications Name Sig Start Date [...] propionate 50 mcg/actuati on nasal spray,suspe nsion [place] 1 spray every day by intranasa l [...] % 97 % 88 /min 98.1 [degF] 19234.9 3 g 110 mm[Hg] 68 mm[Hg] Not Available [facility] 3 22:47:51 Date Recorded Body mass index (BMI) Body height Oxygen saturation Oxygen saturation in Arterial blood by Pulse oximetry Heart rate Body temperature Body weight Systolic blood pressure Diastolic blood pressure Provider Name and Address Organization Details Last Updated DateTime 1 25.4 kg/m2 172.72 cm 96 % 96 % 84 /min 98.7 [degF] 68421.9 3 g 126 mm[Hg] 78 mm[Hg] Not Available [facility] 3 22:47:51 Date Recorded Body mass index (BMI) Body height Oxygen saturation Oxygen saturation in Arterial blood by Pulse oximetry Heart rate Body temperature Body weight Systolic blood pressure Diastolic blood pressure Provider Name and Address Organization Details Last Updated DateTime 1 25.4 kg/m2 172.72 cm 98 % 98 % 81 /min 98.1 [degF] 41538.9 3 g 120 mm[Hg] 80 mm[Hg] Not Available [facility] 3 22:47:51 Date Recorded Body weight Body temperature Heart rate Oxygen saturation Oxygen saturation in Arterial blood by Pulse oximetry Systolic blood pressure Diastolic blood pressure Provider Name and Address Organization Details Last Updated DateTime 3 83476.1 5 g 97.3 [degF] 96 /min 98 % 98 % 124 mm[Hg] 76 mm[Hg] Allie Hopkins RN [place] [facility] 3 08:13:31 Social History Question Answer Notes LastModified by [employer] Details LastModified Time Tobacco Smoking Status Never Smoker Not Available [facility] 11/27/2022 22:47:13 Do You Have An Advance Directive? No [id number] Information not available 11/27/2022 What Is Your Level Of Caffeine Consumption? Moderate [id number] Information not available 11/27/2022 How Much Tobacco Do You Chew? None [id number] Information not available 11/27/2022 Which Illicit Or Recreational Drugs Have You Used? No [id number] Information not available 11/27/2022 What Was The Date Of Your Most Recent Tobacco Screening? 02/12/2021 [id number] Information not available 11/27/2022 Do You Use Sunscreen Routinely? Yes [id number] Information not available 11/27/2022 Sex: Unknown Functional Status Question Answer Note LastModified by [employer] Details LastModified Time What is your level of alcohol consumption? Moderate [id number] Information not available 11/27/2022 Do you or have you ever used smokeless tobacco? 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 Never used electronic cigarettes [id number] Information not available 11/27/2022 What is your exercise level? Occasional [id number] Information not available 11/27/2022 Mental Status None recorded. Family History Relationship Description Onset Age of this Age Resolved Age Notes LastModified by Organization Details LastModified Time Mother Essential hypertension [id number] Not available 11/27/2022 22:47:47 Mother Malignant neoplasm of skin Not melano ma [id number] Not available 11/27/2022 22:47:47 Father Essential hypertension [id number] Not available 11/27/2022 22:47:47 Father Heart disease [id number] Not available 11/27/2022 22:47:47 Brother Essential hypertension [id number] Not available 11/27/2022 22:47:47 Medical History Condition Response BLINDNESS N RHEUMATIC FEVER N BLADDER PROBLEMS N KIDNEY STONES N MRSA N OTHER # 1 N POLIO N LUNG DISEASE/DISORDER N RADIATION / CHEMOTHERAPY N COPD N Other # 2 N BLOOD DISEASES N SURGERY N EAR OR HEARING PROBLEMS N MUMPS N DEPRESSION (INCLUDING POST ) N BOWEL PROBLEMS N FEMALE PROBLEMS / INFECTIONS N STROKE/TIA [...] N EDEMA N CHRONIC PAIN SYNDROME N CONSTIPATION N CAROTID BLOCKAGE N BACK / NECK PROBLEMS N HAVE YOU BEEN HOSPITALIZED OR SEEN IN [facility] IN THE PAST YEAR ? N ATHEROSCLEROSIS [...] (COVID-19) vaccine, UNSPECIFIED 1 completed Not Available [facility] 11/27/2022 22:50:46 SARS-COV-2 (COVID-19) vaccine, UNSPECIFIED 1 completed Not Available [facility] 11/27/2022 22:50:46 Past Encounters Encounter ID Performer Location Encounter Start Date Encounter Closed Date Diagnosis/Indication Diagnosis SNOMED-CT Code Diagnosis ICD10 Code Diagnosis Note [id number] Dodie Chung MD [facility] Primary Care [place] [address] [facility] [address] [place] [address] 02/12/2021 00:00:00 02/12/2021 09:43:15 [id number] Dodie Chung MD [facility] Primary Care [facility] [address] [facility] [address] [place] [address] 03/12/2021 00:00:00 03/12/2021 09:21:57 [id number] Dodie Chung MD [facility] Primary Care [place] [address] [facility] [address] [place] [address] 04/09/2021 00:00:00 04/09/2021 08:19:28 [id number] Dodie Chung MD [facility] Primary Care [facility] [address] [facility] [address] [place] [address] 03/04/2023 08:08:34 03/04/2023 08:48:21 Dysfunction of eustachian tube 62928098 H69.93 continue flonase, xyzal and neti potok [...] Amin Member ID Guarantor Name 03/04/2023 1 [facility] [id number] Sarah Parsons [id number] 1 Sarah Parsons Notes Date Note Type [...] 2 sprays BID, sudafed. Dodie Chung MD [address] [facility] [facility] [address], [place], [address], [facility] [employer] [facility] 03/04/2023 08:34:40 OBGyn Episode No OBEpisode recorded.
--- NOTE | 2025-02-07 08:32 | WPDHPUPDATE1 ---
History and Physical Update Update Date/Time: 02/07/25 08:32 History and Physical has been reviewed, including an updated exam of the patient. There are NO changes in the patient's condition. Risks, benefits, and alternatives have been discussed and questions answered. Patient agrees to proceed with procedure.
--- NOTE | 2025-02-07 08:33 | PM.HPGS ---
History of Present Illness History of Present Illness Consent: Risks, benefits, and alternatives have been discussed and questions answered. Patient agrees to proceed with procedure. Chief complaint: irregular menstrual cycles Narrative: Sarah Parsons is a 44 year old female with irregular bleeding. Patient has cycles 7 days on followed by 7 days off. None of the bleeding is heavy. She cannot determine what is her normal cycle. All bleeding is approximately the same. It was recommended to undergo D&C hysteroscopy for further evaluation. Risks of infection, bleeding, perforation, and possible pathology are discussed. Patient voices understanding and agrees to proceed. Review of Systems Review of Systems: not repeated day of surgery; patient states no changes in status PMFSH Past Medical History Medical History (Updated 02/07/25 @ 08:36 by Maria E Aguilera MD) Migraines Anxiety Fibromyalgia Rosacea Seasonal allergies Healthy adult Surgical History Surgical History (Updated 02/07/25 @ 08:36 by Maria E Aguilera MD) History of tonsillectomy History of laparoscopic cholecystectomy History of X2 Social History Social History Smoking status: Never smoker Second hand tobacco smoke exposure: No Alcohol intake: current Drinks per week: 2 Substance use: never Substance use type: does not use Living arrangements: with family Spiritual care concerns: No Meds Home Medications and Allergies Home Medications ?Medication ?Instructions ?Recorded ?Confirmed ?Type fluticasone propionate 50 1 spray intranasal BID 09/25/20 01/26/25 History mcg/actuation nasal spray,suspension (Flonase Allergy Relief) ketotifen fumarate 0.025 % (0.035 1 drp ophthalmic (eye) BID 09/25/20 01/26/25 History %) eye drops (Zaditor) duloxetine 30 mg capsule,delayed 30 mg PO DAILY 01/17/25 01/26/25 History release (Cymbalta) levocetirizine 5 mg tablet (24HR 5 mg PO HS 01/26/25 01/26/25 History Allergy Relief) magnesium aspart,citrate,oxide mg PO HS 01/26/25 History melatonin 10 mg capsule 10 mg PO HS 01/26/25 01/26/25 History vitamin d PO DAILY 01/26/25 History vitamin e PO DAILY 01/26/25 History Allergies Allergy/AdvReac Type Severity Reaction Status Date / Time morphine Allergy Intermediate Hives Verified 01/26/25 09:11 Penicillins Allergy Mild Hives Verified 01/26/25 09:11 Exam Const: General: healthy appearing and alert Orientation/consciousness: patient oriented x3 Resp: Effort & Inspection: normal respiratory effort : External Female Exam: normal external appearance Speculum Exam - Vagina: normal appearance of the vagina and normal vaginal discharge Speculum Exam - Cervix: normal appearance of the cervix Bimanual exam- vagina & uterus: uterine size normal and consistency normal Bimanual Exam- Adnexa, other: normal adnexae and No adnexal tenderness Neuro: General: patient oriented x3 Assessment and Plan Assessment and plan (1) Irregular menstrual bleeding: Code(s): N92.6 - Irregular menstruation, unspecified Status: Acute Assessment and Plan: Plan to proceed with D&C hysteroscopy
[2025-02-07 11:27] VITALS: BP 122/71; PULSE 80; RESP 14; TEMP 36.6; O2SAT 100; BMI 26.3
[2025-02-07] MEDS: LACTATED RINGERS 1,000 ML 30 ML IV CONT (11:48)
[2025-02-07] MEDS: ACETAMINOPHEN 500 MG TABLET 1000 MG PO (11:49)
[2025-02-07 11:58] LABS: BEDSIDEPREGUCG Negative (Negative)
--- NOTE | 2025-02-07 12:35 | WPDANESEPPF ---
Anes - Initial Pre Proc Eval Procedure: Operation Date: 02/07/25 13:00 Proposed Procedures p Hysteroscopy, Dilation and Curettage - Maria E Aguilera MD Date/Time: 02/07/25 12:35 Surgeon: Maria E Aguilera MD Pre Op Diagnosis: irregular menstrual cycles Patient Data Age: 44 Gender: F Height: 1.73 m Weight: 78.6 kg Last Vital Signs Temp 36.6 C 02/07/25 11:27 Pulse 80 02/07/25 11:27 Resp 14 02/07/25 11:27 BP 122/71 02/07/25 11:27 Pulse Ox 100 02/07/25 11:27 O2 Del Method Room Air 02/07/25 11:27 Allergies Allergy/AdvReac Type Severity Reaction Status Date / Time morphine Allergy Intermediate Hives Verified 02/07/25 11:54 Penicillins Allergy Mild Hives Verified 02/07/25 11:54 Home Medications ?Medication ?Instructions ?Recorded ?Confirmed ?Type fluticasone propionate 50 1 spray intranasal BID 09/25/20 02/07/25 History mcg/actuation nasal spray,suspension (Flonase Allergy Relief) ketotifen fumarate 0.025 % (0.035 1 drp ophthalmic (eye) BID 09/25/20 02/07/25 History %) eye drops (Zaditor) duloxetine 30 mg capsule,delayed 30 mg PO DAILY 01/17/25 02/07/25 History release (Cymbalta) levocetirizine 5 mg tablet (24HR 5 mg PO HS 01/26/25 02/07/25 History Allergy Relief) magnesium aspart,citrate,oxide mg PO HS 01/26/25 History melatonin 10 mg capsule 10 mg PO HS 01/26/25 01/26/25 History vitamin d PO DAILY 01/26/25 History vitamin e PO DAILY 01/26/25 History Laboratory Tests 02/07/25 11:45 POC Urine HCG, Qual Negative (Negative) Patient hx anesthesia problems: none Family hx anesthesia problems: none Results Review: All pre-operative results and documents have been reviewed as part of the pre-operative evaluation. [facility] Past Medical History Medical History Migraines Anxiety Fibromyalgia Rosacea Seasonal allergies Healthy adult Surgical History Surgical History History of tonsillectomy History of laparoscopic cholecystectomy History of X2 Social History Social History Smoking status: Never smoker Second hand tobacco smoke exposure: No Alcohol intake: current Drinks per week: 2 Substance use: never Substance use type: does not use Living arrangements: with family Spiritual care concerns: No Anes - Eval Final PreProcedure Day of Procedure 02/07/25 12:35 Patient weight: overweight Heart: regular rate and rhythm Lungs: clear to auscultation Airway: Mallampati scale class II Neurological: alert and oriented Last oral intake: >/= 8 hours ASA classification: II Emergent: no Anesthetic plan: proceed Anesthesia type and monitoring: general GIVS and standard monitoring Results Review: All pre-operative results and documents have been reviewed as part of the pre-operative evaluation. Informed Consent: The patient's anesthetic plan and its attendant risks and benefits were discussed with the patient/family/POA. Questions were solicited and answers provided to the satisfaction of the patient/family/POA.
[2025-02-07] MEDS: KETOROLAC 15 MG/ML VIAL (*BKC) IV PUSH (13:42)
--- NOTE | 2025-02-07 13:46 | P.OP_ITS ---
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 Uterus sounds to 8cm. The endometrium appears grossly. Description of Procedure The patient is taken to the operating placed under anesthesia in the dorsal lithotomy position. She was prepped and draped in the usual sterile fashion. [place] speculum was placed in the vagina and the cervix was grasped on the anterior a tenaculum. The sound was attempted to be placed but due to stenosis this is unsuccessful. The [place]gar dilators are used and the internal os is not able to be entered. The os Finders were used and the cervix is able to be entered. The uterus then sounds to 8cm. The diagnostic hysteroscope is placed and using hydrodissection the cavity is entered. Cavity appears grossly normal. The hysteroscope was removed. The sharp curette used to curette endometrium until a good uterine cry is noted in all areas. All instruments are removed. Sponge, needle, and instrument counts are correct per the OR staff. The patient was taken to recovery in stable condition. Estimated Blood Loss 5 Drains No Packing No Pathology Yes (Endometrial curettings) Complications No immediate complications Condition Stable Disposition PACU
[2025-02-07 13:49] VITALS: BP 145/92; PULSE 70; RESP 14; O2SAT 99
[2025-02-07] MEDS: oxyCODONE HCL (*CRX) 5 MG TAB IR PO (14:12)
[2025-02-07 14:15] VITALS: BP 134/78; PULSE 70; RESP 16
[2025-02-07 14:32] VITALS: BP 127/74; PULSE 78; RESP 16
== END 2025-02-07 14:39 | disposition home or self-care (01) ==
PROVIDERS: Visit Provider Obstetrics & Gynecology Gynecology
PROC: 0U5B8ZZ Destruction of Endometrium, Via Natural or Artificial Opening Endoscopic (ICD-10-PCS; CPT 58563; principal; 2025-02-07 13:00)
DX: N92.6 Irregular menstruation, unspecified (principal)
CPT/HCPCS: 58558; 88305; A9270; J1885; J2003; J2250; J2704; J3010; J7120